=== PATIENT | female | born 1980 | race Caucasian/White ===

== ENCOUNTER 2017-03-11 09:27 | Emergency (ER) | payer OTHER ==
[~2017-03-11] VITALS: Ht 157.5 cm; Wt 99.8 kg
[~2017-03-11 09:27] MED LIST: CELEXA20 MG PO; DOXYCYCLINE MO100 MG PO; LYSTEDA650 MG PO; PROTONIX 20MG T20 MG PO
[2017-03-11] MEDS ORDERED: MELATONIN10 M2 PO (09:38)
[2017-03-11 09:51] LABS: ABSOLUTE BASOPHIL COUNT 0.1 /CUMM (0.0-0.2); ABSOLUTE EOSINOPHIL COUNT 0.3 /CUMM (0.0-0.7); ABSOLUTE GRANULOCYTE CT 6.9 /CUMM (1.4-6.5); ABSOLUTE LYMPH COUNT 1.4 /CUMM (1.2-3.4); ABSOLUTE MONOCYTE COUNT 0.6 /CUMM (0.10-0.60); BASOPHIL % 0.7 % (0.0-2.0); EOSINOPHIL % 3.5 % (0-5); GRANULOCYTE % 74.8 % (42.2-75.2); MEAN CORPUSCULAR HGB 28.4 PG (27.0-31.0); MEAN CORPUSCULAR HGB CONC 33.6 G/DL (33.0-37.0); MEAN CORPUSCULAR VOLUME 84.5 FL (81.0-99.0); MEAN PLATELET VOLUME 7.5 FL (7.4-10.4); PLATELET COUNT 274 /CUMM (130-400); RBC DISTRIBUTION WIDTH 14.2 % (11.5-14.5); RED BLOOD CELL CT 4.73 /CUMM (4.20-5.40); WHITE BLOOD CELL COUNT 9.3 /CUMM (4.8-10.8)
--- NOTE | 2017-03-11 09:57 | ED GENERAL ADULT ---
History of Present Illness General Chief Complaint: Abdominal Pain/Flank Pain Stated Complaint: UPPER ABDOMINAL PRESSURE Source: patient Exam Limitations: no limitations Vital Signs & Intake/Output Vital Signs & Intake/Output ED Intake and Output 03/12 0000 03/11 1200 Intake Total Output Total Balance Patient 220 lb Weight Weight Reported by Patient Measurement Method Allergies Coded Allergies: latex (Intermediate, HIVES 04/17/16) shellfish derived (Intermediate, HIVES 04/17/16) Reconcile Medications Ibuprofen 800 MG TABLET 1 TAB PO TID pain Melatonin 10 MG TABLET 1 TAB PO QPM SLEEP (Reported) Triage Note: 36 UPPER ABDOMEN; ONSET SAT AND INTERMITTENT (THOUGH IMPROVING) SINCE ONSET. PT STATES SHE HAD XRAY DONE SAT AND WAS TOLD IT WAS NEGATIVE. PT STATES "IT FEELS LIKE A BEAR HUG WHEN IT HAPPENS". DENIES N/V/D. DENIES OTHER COMPLAINTS. NORMAL APPETITE/PO INTAKE PER PT. LAST MENSES LAST WEEK AND NORMAL PER PT Triage Nurses Notes Reviewed? yes Onset: Abrupt Duration: day(s): (4), intermittent Timing: recent history Injury Environment: home Severity: moderate, severe No Modifying Factors: none : No Patient currently breastfeeds: No HPI: 36-year-old female comes into emergency room for further evaluation of this pain that the patient has been experiencing that is located just below her breast that wraps around her entire body like a band. She denies any shortness of breath. Denies any vomiting nauseous this. Denies any fever chills cough. Denies any changes in bowel movement. Denies any urinary symptoms. Patient reports that she woke up with the pain Thursday early. The pain is intermittent. It comes and goes every few minutes. Denies any prior history of this. Denies any past medical history other than asthma and denies any surgical history. Nothing seems to make the symptoms better or worse. Not related to exertion. (JACKELYN BROWN) Past History Travel History Traveled to [place] past 21 day No Medical History Any Pertinent Medical History? see below for history Neurological: NONE EENT: NONE Cardiovascular: NONE Respiratory: NONE Gastrointestinal: NONE Hepatic: NONE Renal: NONE Musculoskeletal: NONE Psychiatric: NONE Endocrine: NONE Blood Disorders: NONE Cancer(s): NONE MARKETING SERVICES COORDINATOR/Reproductive: NONE Surgical History Surgical History: non-contributory Psychosocial History What is your primary language Latvian Tobacco Use: Quit >30 days ago Family History Hx Contributory? No (JACKELYN BROWN) Review of Systems Review of Systems Constitutional: Reports: no symptoms. EENTM: Reports: no symptoms. Respiratory: Reports: no symptoms. Cardiovascular: Reports: see HPI. GI: Reports: see HPI. Genitourinary: Reports: no symptoms. Musculoskeletal: Reports: no symptoms. Skin: Reports: no symptoms. Neurological/Psychological: Reports: no symptoms. Hematologic/Endocrine: Reports: no symptoms. Immunologic/Allergic: Reports: no symptoms. All Other Systems: Reviewed and Negative (JACKELYN BROWN) Physical Exam Physical Exam General Appearance: well developed/nourished, alert, awake Head: atraumatic, normal appearance Eyes: Bilateral: normal appearance, EOMI. Ears, Nose, Throat: normal pharynx, hearing grossly normal Neck: normal inspection, full range of motion Respiratory: normal breath sounds, no respiratory distress Cardiovascular: regular rate/rhythm Back: normal inspection Extremities: normal inspection, normal range of motion, no edema Neurologic/Psych: awake, alert, oriented x 3, normal gait, normal mood/affect Skin: intact, normal color Core Measures ACS in differential dx? No CVA/TIA Diagnosis: No Severe Sepsis Present: No Septic Shock Present: No (JACKELYN BROWN) Progress Differential Diagnoses I considered the following diagnoses in my evaluation of the patient: OH, PE, cholecystitis, pancreatitis, shingles, muscular, kidney stone, peptic ulcer disease, pneumothorax, Plan of Care: Orders Procedure Date/time Status Add-on Test (ER Only) 03/11 1037 Active Add-on Test (ER Only) 03/11 955 Active EKG 03/11 955 Active TROPONIN LEVEL 03/11 945 Complete D-DIMER 03/11 945 Complete URINE 03/11 932 Complete URINALYSIS 03/11 932 Complete LIPASE 03/11 932 Complete COMPREHENSIVE METABOLIC PANEL 03/11 932 Complete CBC WITHOUT DIFFERENTIAL 03/11 932 Complete AMYLASE 03/11 932 Complete Laboratory Tests 03/11/17 0945: Anion Gap 12, Estimated GFR > 60, BUN/Creatinine Ratio 15.6, Glucose 110 H, Calcium 9.0, Total Bilirubin 0.9, AST 23, ALT 49, Alkaline Phosphatase 73, Troponin I < 0.01, Total Protein 7.3, Albumin 4.0, Globulin 3.3, Albumin/ Globulin Ratio 1.2, Amylase 41, Lipase 138, D-Dimer 207, CBC w Diff NO MAN DIFF REQ, RBC 4.73, MCV 84.5, MCH 28.4, RDW 14.2, MPV 7.5, Gran % 74.8, Lymphocytes % 14.5 L, Monocytes % 6.5, Eosinophils % 3.5, Basophils % 0.7, Absolute Granulocytes 6.9 H, Absolute Lymphocytes 1.4, Absolute Monocytes 0.6, Absolute Eosinophils 0.3, Absolute Basophils 0.1, PUBS MCHC 33.6, Urine Color YEL, Urine Clarity CLEAR, Urine pH 5.5, Ur Specific [place] >= 1.030, Urine Protein NEG, Urine Ketones NEG, Urine Nitrite NEG, Urine Bilirubin NEG, Urine Urobilinogen 0.2, Ur Leukocyte Esterase NEG, Ur Microscopic EXAM NOT REQUIRED, Urine Hemoglobin NEG, Urine Glucose NEG, Urine Test NEGATIVE Diagnostic Imaging: Viewed by Me: Radiology Read, CT Scan. Discussed w/RAD: Radiology Read, CT Scan. Radiology Impression: SERVICE DATE: 03/11/17 EXAM TYPE: CAT - CT ABD & PELVIS W IV CONTRAST EXAMINATION: CT ABDOMEN AND PELVIS WITH CONTRAST CLINICAL INFORMATION: Upper abdominal pain. COMPARISON: None. TECHNIQUE: Contiguous axial thin section helical images of the abdomen and pelvis were performed following the administration of 93 mL of intravenous Optiray 320. The data set was reformatted in the coronal and sagittal planes and reviewed on an independent workstation. DLP: 1158 mGy-cm. FINDINGS: The visualized lung bases are clear. The visualized portions of the heart are unremarkable. The liver is of normal size and diffuse decreased attenuation without focal lesions nor intrahepatic biliary ductal dilation. A normal gallbladder is identified. There is no wall thickening or discernible pericholecystic fluid. The spleen, pancreas, adrenal glands are unremarkable. Both kidneys are of normal size and attenuation without hydronephrosis or nephrolithiasis. Following the administration of IV contrast, prompt symmetric nephrograms are displayed. There is no abdominal free fluid. There is neither mesenteric nor retroperitoneal lymphadenopathy. Normal unopacified loops of small and large bowel are identified. There is no pelvic free fluid. An IUD is in place. The urinary bladder is unremarkable. There is neither pelvic nor inguinal lymphadenopathy. Bone windows: Neither sclerotic nor lytic bone lesions are identified. IMPRESSION: No evidence for acute abdominal or pelvic inflammatory or infectious processes. Hepatic steatosis. DICTATED BY: JONH GUTIÉRREZ MD DATE/TIME DICTATED:03/11/171229 MULTIPLE CUT OFF SAW OPERATOR:LILLIAM , SERVICE DATE: 03/11/17 EXAM TYPE: RAD - XRY-CHEST XRAY, PA AND LATERAL EXAMINATION: XR CHEST CLINICAL INFORMATION: Chest discomfort, wrapping around the back. COMPARISON: Chest 06/19/2016. TECHNIQUE: 2 views of the chest were obtained. FINDINGS: Both lungs are fairly well-expanded and clear. Heart size and pulmonary vascularity is normal. No gross bony abnormality seen. IMPRESSION: Unremarkable chest exam. DICTATED BY: JULITA HENSLEY MD DATE/TIME DICTATED:1025 MULTIPLE CUT OFF SAW OPERATOR:LILLIAM DATE/TIME TRANSCRIBED:03/11/171025 Initial ED EKG: normal intervals, normal p-waves, normal QRS complex, normal sinus rhythm, rate (74), nonspecific ST T wave chg (JACKELYN BROWN) Departure Departure Disposition: HOME OR SELF CARE Condition: Stable Clinical Impression Primary Impression: Abdominal pain Secondary Impressions: Atypical chest pain Referrals: MAKENNA COVARRUBIAS,IDA Ohara (PCP/Family) Additional Instructions: Follow-up with your primary care doctor for further evaluation. Return if any other concerns worsening symptoms. Take ibuprofen as prescribed. Please go over all results of today's visit with your primary care doctor. Contact your primary care doctor to let them know you were here in the emergency room. There may be nonspecific findings which may not be related to your visit today here in the emergency room but may require further evaluation and chronic monitoring by your primary care doctor. If you had a laceration today the chance of foreign body always remains. You should follow-up with your primary care doctor for recheck in 3-5 days for a wound check. If you had an x-ray done there is a chance that a fracture could have been missed on initial read and you should follow-up with your primary care doctor for repeat x-rays if symptoms persist. If your blood pressure was elevated here in the emergency room please have rechecked by her primary care doctor within the next 48 hours by your primary care doctor. If you were prescribed a narcotic here in the emergency room or any type of controlled substances you're not allowed to drive while taking this medication or operate any type of heavy machinery. Narcotics can make you feel lightheaded dizziness nausea and can cause constipation. You may need to picker a stool softener. Thank you for choosing [facility] emergency room. Please return to the emergency room immediately if you have any other concerns worsening of symptoms. Departure Forms: Customer Survey General Discharge Information Prescriptions: Current Visit Scripts Ibuprofen 1 TAB PO TID #30 TAB Comments 03/11/2017 3:26:08 PM Patient clinically looks well. Patient is nontoxic-appearing. Patient is in no apparent distress. Patient resting comfortably in room. EKG within normal limits. Negative d-dimer. No suspicion for pulmonary embolism or any type of acute cardiac event. CT scan normal. Pain is atypical. Patient needs follow- up with her primary care doctor. Cause of pain is unclear at this time. Patient understands and agrees a plan of care. Case discussed with Dr. peterson. Return if any other concerns. (JACKELYN BROWN) PA/ENERGY AND SUSTAINABILITY MANAGER Co-Sign Statement Statement: ED Attending supervision documentation- I saw and evaluated the patient. I have also reviewed all the pertinent lab results and diagnostic results. I agree with the findings and the plan of care as documented in the PA's/ENERGY AND SUSTAINABILITY MANAGER's documentation. X I have reviewed the ED Record and agree with the PA's/ENERGY AND SUSTAINABILITY MANAGER's documentation. [] Additions or exceptions (if any) to the PAs/ENERGY AND SUSTAINABILITY MANAGER's note and plan are summarized below: [] (RENUKA RUST,CAROLYN) Critical Care Note Critical Care Note Critical Care Time: non-applicable (JACKELYN BROWN)
--- NOTE | 2017-03-11 10:30 | RADIOLOGY REPORT ---
EXAMINATION: XR CHEST CLINICAL INFORMATION: Chest discomfort, wrapping around the back. COMPARISON: Chest 06/19/2016. TECHNIQUE: 2 views of the chest were obtained. FINDINGS: Both lungs are fairly well-expanded and clear. Heart size and pulmonary vascularity is normal. No gross bony abnormality seen. IMPRESSION: Unremarkable chest exam.
--- NOTE | 2017-03-11 12:35 | CT SCAN REPORT ---
EXAMINATION: CT ABDOMEN AND PELVIS WITH CONTRAST CLINICAL INFORMATION: Upper abdominal pain. COMPARISON: None. TECHNIQUE: Contiguous axial thin section helical images of the abdomen and pelvis were performed following the administration of 93 mL of intravenous Optiray 320. The data set was reformatted in the coronal and sagittal planes and reviewed on an independent workstation. DLP: 1158 mGy-cm. FINDINGS: The visualized lung bases are clear. The visualized portions of the heart are unremarkable. The liver is of normal size and diffuse decreased attenuation without focal lesions nor intrahepatic biliary ductal dilation. A normal gallbladder is identified. There is no wall thickening or discernible pericholecystic fluid. The spleen, pancreas, adrenal glands are unremarkable. Both kidneys are of normal size and attenuation without hydronephrosis or nephrolithiasis. Following the administration of IV contrast, prompt symmetric nephrograms are displayed. There is no abdominal free fluid. There is neither mesenteric nor retroperitoneal lymphadenopathy. Normal unopacified loops of small and large bowel are identified. There is no pelvic free fluid. An IUD is in place. The urinary bladder is unremarkable. There is neither pelvic nor inguinal lymphadenopathy. Bone windows: Neither sclerotic nor lytic bone lesions are identified. IMPRESSION: No evidence for acute abdominal or pelvic inflammatory or infectious processes. Hepatic steatosis.
[2017-03-11 13:03] VITALS: BP 123/68
[2017-03-11] MEDS ORDERED: IBUPROFEN800 M1 PO (13:03)
== END 2017-03-11 13:09 ==
LOC: ERH 09:27
PROVIDERS: Physician Assistant Medical
DX: R07.89 Other chest pain (principal); R10.9 Unspecified abdominal pain
CPT/HCPCS: 74177; 81003; 81025; 93005; 93010; Q9965

== ENCOUNTER → 2018-02-12 | Day surgery (SDC) | payer OTHER ==
[~2018-02-12] VITALS: Ht 157.5 cm; Wt 113.4 kg
[~2018-02-12] MED LIST changes: +CLONAZEPAM0.5 M2 PO; +IBUPROFEN800 M1 PO; +MELATONIN10 M2 PO; +PROAIR HFA8.5 GM INH; +TRAZODONE HCL50 M1 PO; +VITAMIN D250000 UNIT PO
--- NOTE | 2018-02-12 11:25 | Operative Report ---
Operative/Inv Procedure Report Surgery Date: 02/12/18 Name of Procedure: urethral sling removal, sling placement Pre-Operative Diagnosis: recurrent RONNY Post-Operative Diagnosis: same Estimated Blood Loss: 50ml to 100ml Surgeon/Emergency Spill Response Technician: Ana Chanel MD Anesthesia: laryngeal mask airway Implants: mesh sling Drains: none Specimens: removal of sling mesh Complications: none Condition: stable Operative Indication: recurrent RONNY Operative/Procedure Note Note: Operative dictation on patient Moraima Oliva. 37-year-old female with a history of stress urinary incontinence that had a urethral sling several months ago. She did very well postoperatively and experienced no stress incontinence however after very aggressive bout of illness with severe coughing her stress incontinence returned. It was not as severe as it once was however it was still very bothersome. She desired to have another sling placed in hopes of improving this recurrent stress incontinence. She was given the risks benefits and alternatives of doing so and all questions were answered. Consent was signed in the holding area. Patient was taken to the operating room placed on the operating table in supine supine position. Timeout was performed. IV antibiotics were infused. LMA anesthesia was initiated. She was placed in the dorsal lithotomy position and shaved and the genitalia region. She was prepped and draped in the standard sterile fashion. A Monzon catheter was placed and the bladder was inflated with 10 mL of water. The Monzon was clamped and placed on the patient's abdomen. 1% lidocaine with epinephrine was infiltrated into the anterior vaginal wall beneath the urethra and into the vaginal fornices. Incision was made and the vaginal flaps are created taking care not to injure the urethra. The mesh was easily identified and was seen to be in excellent position. Was actually not in a guitar string orientation as initially suspected. His next no mesh extrusion or erosion into the vaginal fornices or the urethra. The mesh was removed and the area beneath the urethra. This was sent off to pathology. Cystoscopy was performed to evaluate the urethra and there was no injury to the urethra. A new Altis sling kit was opened and placed into the patient's retropubic space on the left and than the right side. The sling was seen to be in a nice flat orientation. The sling was placed tied or then originally placed. Area was copiously irrigated with bacitracin irrigation. The sling was sutured into place with 3-0 Vicryl at the 12 and 6 o'clock position to keep in a flat orientation. Incision was closed using 3-0 Vicryl running locked every third suture. Cystoscopy was performed and the bladder was globally inspected and there was no mesh in the bladder urethra or vaginal fornices. Sponge and needle count were correct end of the case. Patient tolerated procedure and she was transferred to the recovery room stable condition.
== END ==
LOC: STS 01:43
DX: N39.3 Stress incontinence (female) (male) (principal); J45.909 Unspecified asthma, uncomplicated; Z87.891 Personal history of nicotine dependence; E66.9 Obesity, unspecified; Z68.41 Body mass index [BMI] 40.0-44.9, adult
CPT/HCPCS: 81025; C1771; J0690; J1100; J2250; J2405